=== PATIENT | female | born 1965 | race African-American/Black ===

== ENCOUNTER 2017-03-13 13:03 | Inpatient (IN) ==
[2017-03-13] MEDS ORDERED: INSULIN LISPRO 100 UNIT/ML SUBCUT STA (13:35)
[2017-03-13 13:44] LABS: Basophils % 0.2 % (0.0-0.8); Eosinophils # 0.1 10*3/uL (0.0-0.87); Hematocrit 39.2 VOL% (35.7-47.0); Hemoglobin 13.8 GM/DL (12.0-16.0); Immature Granulocytes % 0.6 %; Immature Granulocytes Absolute 0.03 #; Lymphocytes # 0.8 10*3/uL (1.4-4.0); Lymphocytes % 15.6 % (21.3-54.2); Mean Corpuscular HGB Conc 35.2 GM/DL (32-36); Mean Corpuscular Hemoglobin 31 PG (27-34); Mean Corpuscular Volume 89.1 FL (87-102); Mean Platelet Volume 10.7 FL (9.6-12.0); Monocytes # 0.2 10*3/uL (0.11-0.8); Monocytes % 3.9 % (1.7-12.7); Neutrophils # 3.8 10*3/uL (1.4-7.4); Neutrophils % 77.7 % (38.7-73.9); Platelet Count 201 T/CUMM (130-400); Red Cell Distribution Width 11.4 % (9.3-17.3); White Blood Count 4.9 T/CUMM (4-12)
[2017-03-13] MEDS ORDERED: ONDANSETRON 4 MG/2 ML VIAL IV STA (13:51)
--- NOTE | 2017-03-13 13:52 | Emergency Department Note ---
Karissa Kenyon Gwan, am scribing for, and in the presence of, Syed France MD 13:39 . Edilma Kenyon James D, MD, personally performed the services described in this documentation, ascribed by Brooke Hancock in my presence, and it is both accurate and complete [id number] . Arrival - Arrival Chief Complaint: Non-Specific Stated Complaint: elev blood sugar (586) ED Nursing Triage Note: Elevated blood glucose x 2 days - accu check at time of triage > 500 Mode of Arrival: Ambulatory Limitations: No Limitations Source: Patient, Old Records Reviewed, RN Notes Reviewed Time Seen by Provider: 03/13/17 13:29 - History of Present Illness HPI Narrative: Patient is a 52 y/o female who presents to the ED for further evaluation of elevated blood glucose with an onset 2 days. Pt has a PMHx of NIDDM, IDDM and HTN. Her associated sxs have been urine frequency and being constant thirsty. Patient confirmed that she was dx with DM last year and that she has been compliant with her prescribed medications and diet. She denies any V/D. At time of triage, pt's accu check was >500. During exam pt stated that she had an onset of abd pain today. No other problems/complaints reported in ED. Onset (ago): day(s) Consistency: constant Severity: moderate Date of Last Menstrual Period: oliva Allergies/Adverse Reactions: Allergies Allergy/AdvReac Type Severity Reaction Status Date / Time No Known Allergies Allergy Verified 10/31/16 15:20 Home Medications: Home Medications Medication Instructions Recorded Confirmed Type [place]-3 Fatty Acids [Fish Oil 1,000 mg PO DAILY 12/06/15 03/13/17 History Concentrate] Aspirin EC Tab 325 mg PO DAILY #30 tablet 12/11/15 03/13/17 Rx Magnesium Oxide 400 mg PO BID #60 tablet 12/11/15 03/13/17 Rx Metoclopramide Tab [Reglan Tab] 5 mg PO TIDAC #90 tablet 12/11/15 03/13/17 Rx Sotalol [Betapace] 80 mg PO BID #60 tablet 12/11/15 03/13/17 Rx glyBURIDE [Diabeta] 10 mg PO BID W/MEALS #60 tablet 12/11/15 03/13/17 Rx Diltiazem Tab [Cardizem Tab] 60 mg PO BID 10/31/16 03/13/17 History cloNIDine TAB [Catapres Tab] 0.2 mg PO BID 10/31/16 03/13/17 History Metformin HCl 500 mg PO TID W/MEALS 03/13/17 03/13/17 History Review of System - Review of System 12 point system: reviewed and no additional remarkable complaints except as stated - Review of System Constitutional: Present: as per HPI, other (elevated blood sugar). Absent: chills, fever Eyes: Absent: discharge, pain Head/Ears/Nose/Throat: Absent: earache Respiratory: Absent: cough Cardiovascular: Absent: chest pain, palpitations Gastrointestinal: Present: as per HPI, abdominal pain, nausea, vomiting, diarrhea Genitourinary female: Absent: abnormal menses, dysuria Musculoskeletal: Absent: arm pain, back pain, lower back pain, leg pain, neck pain Skin: Absent: rash, lesions Neurological: Absent: headache, weakness Medical,Surgical,& Family Hx - Medical History Cardio: History of: Hypertension Endocrine: History of: Diabetes Mellitus (IDDM), Diabetes Mellitus (NIDDM) - Surgical History Cardiac Surgeries: Patient Denies: Cardiac Catheterization Reproductive Surgeries: Surgical HX of;: Tubal Ligation - Family History Family History: Reports;: Family Diabetes (mother and father) - Social History Smoking Status: Current every day smoker Frequency of Alcohol Use: None Type of Drug Use: None Exam Physical Examination: GENERAL: This is a well-nourished, well-developed black female in no apparent distress. VITAL SIGNS: HEENT: Head is normocephalic and atraumatic. Pupils are equally round and reactive to light. Extraocular movement are intact. Oropharynx is benign with moist mucous membranes. NECK: Neck is soft and supple without tenderness. There are no masses. There is no lymphadenopathy. LUNGS: Lungs are clear to auscultation bilaterally. Chest rises symmetrically. There is no chest wall tenderness. CV: Heart is regular rate and rhythm without murmurs, rubs, or gallops. ABDOMEN: Abdomen is soft, non-tender to palpation. There are no abnormal masses palpated. There is no organomegaly. Bowel sounds are present and active. SKIN: Skin is warm and dry. No rash. EXTREMITIES: Patient has full range of motion without tenderness. There is no pedal edema. NEUROLOGIC: Awake, alert, and oriented x4. Cranial nerves II through XII are grossly intact. There are no motorsensory deficits. PSYCHIATRIC: Normal affect. Normal mood. Vital Signs: Vital Signs Temperature 98.1 F 03/13/17 13:12 Pulse Rate 83 03/13/17 13:12 Respiratory Rate 20 03/13/17 13:12 Blood Pressure 171/94 03/13/17 13:12 O2 Sat by Pulse Oximetry 97 03/13/17 13:12 Course Course Narrative: Patient was given a liter of IV fluids and 10 units of regular insulin IV. - Consultations Consultation #1: Discussed with hospitalist. Patient will be admitted to their service. Time: 14:29 Results - Labs CBC & BMP: 03/13/17 13:37 03/13/17 13:37 Lab Results: I have reviewed the patients labs Labs: Laboratory Tests 03/13/17 13:37 WBC 4.9 RBC 4.40 Hgb 13.8 Hct 39.2 Plt Count 201 Neut % (Auto) 77.7 H Lymph % (Auto) 15.6 L Lymph # (Auto) 0.8 L Laboratory Tests 03/13/17 13:37 Sodium 133 L Potassium 3.9 Chloride 99 Carbon Dioxide 24 BUN 10 Creatinine 1.00 Glucose 751 H* Disposition Clinical Impression: Diabetes mellitus type 2, uncontrolled Case discussed with: patient Disposition: Still a Patient Condition: Stable
[2017-03-13 14:13] LABS: Calcium 8.5 MG/DL (8.5-10.1); Osmolality,Calculated 300.4 MOS/KG (273-304); Potassium 3.9 MMOL/L (3.5-5.1)
--- NOTE | 2017-03-13 14:20 | XRay Report ---
XR chest 1V Indication: Hyperglycemia. Nausea. Chest one view: Comparison 12/06/2015. The heart size and mediastinal contour are normal. The lungs and pleural spaces are clear, except for scattered calcified granuloma. Bones are unremarkable. Impression: Negative chest except for prior granulomatous disease. PROCEDURE INTERPRETED AT [facility] DEPARTMENT OF RADIOLOGY Final Report Signed by: Albert David M.D.
--- NOTE | 2017-03-13 14:21 | XRay Report ---
XR abdomen complete w decub Indication: Nausea. Abdomen 3 views: No small bowel dilatation. Some stool projects over the colon. No evidence of free air. No abnormal calcifications or masses. There are some phleboliths in the pelvis. Impression: No acute pathology identified. PROCEDURE INTERPRETED AT [facility] DEPARTMENT OF RADIOLOGY Final Report Signed by: Albert David M.D.
[2017-03-13] MEDS ORDERED: INSULIN REGULAR 100 UNIT/ML IV STA (14:27)
[2017-03-13] MEDS ORDERED: ONDANSETRON 4 MG/2 ML VIAL ONE (14:28)
[2017-03-13] MEDS ORDERED: SODIUM CHLORIDE 0.9% 1,000 ML IV STA (14:28)
[2017-03-13] MEDS ORDERED: INSULIN REGULAR 100 UNIT/ML ONE (14:30)
[2017-03-13 15:40] LABS: Apearance,Urine CLEAR (Clear); Bilirubin,Urine Negative (Negative); Blood, Urine Negative (Negative); Glucose,Urine (UA) >=500 mg/dL (Negative); Ketones,Urine 20 mg/dL (Negative); Mucus,Urine Occasional /LPF (Occasional); Nitrite,Urine Negative (Negative); Protein,Urine Negative; RBC,Urine <1 /HPF (0-4); Squamous Epithelial Cell,Urine Occasional /HPF (0-10); Urine Color Straw (Yellow); Urine Specific Gravity 1.031 (1.001-1.035); Urine Urobilinogen < 2.0 EU/DL (0.2-1.0); WBC,Urine 3 /HPF (0-6)
--- NOTE | 2017-03-13 17:18 | Hospitalist History & Physical ---
Assessment and Plan (1) Diabetes mellitus type 2, uncontrolled Status: Acute Current Visit: Yes (2) Essential hypertension Status: Chronic Assessment and plan: Our plan for this patient will be admission to [facility] floor. We will consult diabetic education check an A1c. We will try sliding scale for now. Patient maintains that her sugar was maintained on orals and would be in the 120s. She does quit taking her medications because she did not like the way they made her feel. I stressed the importance of being compliant with her diabetic medications and that it ineffective she could maintain a 120 on the oral medications there is a possibility if she lost weight and diet and exercise that she could be diet-controlled diabetes. Patient will need to be reevaluated in the morning with regards to how she is responding to the fluids and sliding scale and switch her over to p.o. medications. In addition we will continue her other medications for her hypertension. If she has not been compliant with her diabetic medications most likely she has not been compliant with her blood pressure medications. Current Visit: No History of Present Illness Chief complaint: Elevated sugar History of present illness: Ms. Booth is a 52 year old female with past medical history significant for diabetes and hypertension who comes in the ER today complaining of elevated blood glucose. Patient reports that it has been elevated for the past 2 days. She is not on insulin and she says takes metformin. She quit taking her metformin approximately a week ago or longer because she did not like the way it made her feel. She goes to the [facility] clinic. She does not have any nausea or vomiting. Her Accu-Chek was greater than 500 and was greater than 700 on chemistry. I was consulted to admit her. She received 10 units of IV insulin along with 1 L of fluid and her glucose was 388. I was consulted to admit her through the emergency room. Home Medications Medication Instructions Recorded Confirmed Type [place]-3 Fatty Acids [Fish Oil 1,000 mg PO DAILY 12/06/15 03/13/17 History Concentrate] Aspirin EC Tab 325 mg PO DAILY #30 tablet 12/11/15 03/13/17 Rx Magnesium Oxide 400 mg PO BID #60 tablet 12/11/15 03/13/17 Rx Metoclopramide Tab [Reglan Tab] 5 mg PO TIDAC #90 tablet 12/11/15 03/13/17 Rx Sotalol [Betapace] 80 mg PO BID #60 tablet 12/11/15 03/13/17 Rx glyBURIDE [Diabeta] 10 mg PO BID W/MEALS #60 tablet 12/11/15 03/13/17 Rx Diltiazem Tab [Cardizem Tab] 60 mg PO BID 10/31/16 03/13/17 History cloNIDine TAB [Catapres Tab] 0.2 mg PO BID 10/31/16 03/13/17 History Metformin HCl 500 mg PO TID W/MEALS 03/13/17 03/13/17 History Allergies Allergy/AdvReac Type Severity Reaction Status Date / Time No Known Allergies Allergy Verified 10/31/16 15:20 Medical,Surgical,& Family Hx - Medical History Cardio: History of: Hypertension Endocrine: History of: Diabetes Mellitus (IDDM), Diabetes Mellitus (NIDDM) - Surgical History Cardiac Surgeries: Patient Denies: Cardiac Catheterization Reproductive Surgeries: Surgical HX of;: Tubal Ligation - Family History Family History: Reports;: Family Diabetes (mother and father) - Social History Smoking Status: Current every day smoker Frequency of Alcohol Use: None Type of Drug Use: None 12 point system: reviewed and no additional remarkable complaints except as stated Exam - Constitutional Vitals: Period Temp Pulse Resp BP Sys/Velarde Pulse Ox Last 24 Hr 98.1 F 83 20 171/94 General appearance: over weight - Head Head exam: Present: normal inspection - Eye Eye exam: Present: EOMI Pupils: Present: NICHOL - ENT ENT exam: Present: normal exam - Neck Neck exam: Present: normal inspection - Respiratory Respiratory exam: Present: clear to auscultation bilaterally - Cardiovascular Cardiovascular exam: Present: regular rate and rhythm - GI/Abdominal GI/Abdominal exam: Present: normal bowel sounds - Extremities Exam Extremities exam: Present: normal inspection - Back Exam Back exam: Present: normal inspection - Neurological Exam Neurological exam: Present: alert, oriented X3 - Psychiatric Psychiatric exam: Present: normal affect, normal mood Results - Labs CBC & BMP: 03/13/17 13:37 03/13/17 13:37
[2017-03-13] MEDS ORDERED: ACETAMINOPHEN 325 MG TABLET PO PRN (17:22)
[2017-03-13] MEDS ORDERED: DEXTROSE 50% 25 GM/50 ML VIAL IV PRN ×2 (17:22)
[2017-03-13] MEDS ORDERED: GLUCAGON 1 MG VIAL IM PRN ×2 (17:22)
[2017-03-13 18:21] LABS: Risk Ratio 2.72; VLDL CHOLESTEROL 25.8 MG/DL
[2017-03-13] MEDS: SODIUM CHLORIDE 0.9% 1,000 ML IV SCH (18:43)
[2017-03-13] MEDS: ENOXAPARIN 40 MG/0.4 ML SYRINGE SUBCUT SCH (18:43)
[2017-03-13] MEDS: INSULIN REGULAR 100 UNIT/ML SUBCUT SCH (21:17)
[2017-03-13] MEDS: MAGNESIUM OXIDE 400 MG TABLET PO SCH (21:19)
[2017-03-13] MEDS: DILTIAZEM 60 MG TABLET PO SCH (21:20)
[2017-03-13] MEDS: SOTALOL 80 MG TABLET PO SCH (21:21)
[2017-03-14 04:59] LABS: Basophils % 0.2 % (0.0-0.8); Eosinophils # 0.2 10*3/uL (0.0-0.87); Eosinophils % 3.1 % (0.00-10.9); Hematocrit 36.4 VOL% (35.7-47.0); Hemoglobin 12.3 GM/DL (12.0-16.0); Immature Granulocytes % 0.4 %; Immature Granulocytes Absolute 0.02 #; Lymphocytes # 2.3 10*3/uL (1.4-4.0); Lymphocytes % 41.2 % (21.3-54.2); Mean Corpuscular HGB Conc 33.8 GM/DL (32-36); Mean Corpuscular Hemoglobin 30 PG (27-34); Mean Corpuscular Volume 89.7 FL (87-102); Mean Platelet Volume 10.8 FL (9.6-12.0); Monocytes # 0.2 10*3/uL (0.11-0.8); Monocytes % 4.2 % (1.7-12.7); Neutrophils # 2.8 10*3/uL (1.4-7.4); Neutrophils % 50.9 % (38.7-73.9); Platelet Count 226 T/CUMM (130-400); Red Blood Count 4.06 MC/CUMM (3.8-5.5); Red Cell Distribution Width 11.5 % (9.3-17.3); White Blood Count 5.5 T/CUMM (4-12)
[2017-03-14] MEDS: SODIUM CHLORIDE 0.9% 1,000 ML IV SCH ×3 (05:28→17:55)
[2017-03-14 05:34] LABS: Calcium 8.1 MG/DL (8.5-10.1); Osmolality,Calculated 282.4 MOS/KG (273-304); Potassium 3.3 MMOL/L (3.5-5.1)
[2017-03-14] MEDS ORDERED: FLUCONAZOLE 150 MG TABLET PO ONE (09:00)
[2017-03-14] MEDS: MAGNESIUM OXIDE 400 MG TABLET PO SCH ×2 (09:02→21:07)
[2017-03-14] MEDS: glyBURIDE 5 MG TABLET PO SCH ×2 (09:02→17:47)
[2017-03-14] MEDS: METOCLOPRAMIDE 5 MG TABLET PO SCH ×3 (09:03→17:48)
[2017-03-14] MEDS: ASPIRIN EC 325 MG TABLET PO SCH (09:03)
[2017-03-14] MEDS: metFORMIN 500 MG TABLET PO SCH ×3 (09:03→17:47)
[2017-03-14] MEDS: PANTOPRAZOLE 40 MG TABLET PO SCH (09:03)
[2017-03-14] MEDS: DILTIAZEM 60 MG TABLET PO SCH ×2 (09:03→21:07)
[2017-03-14] MEDS: OMEGA 3 ACID ETHYL ESTERS 1 GM CAPSULE PO SCH (09:03)
[2017-03-14] MEDS: SOTALOL 80 MG TABLET PO SCH ×2 (09:04→21:07)
[2017-03-14] MEDS: INSULIN REGULAR 100 UNIT/ML SUBCUT SCH ×4 (09:07→21:08)
--- NOTE | 2017-03-14 09:07 | Hospitalist Progress Note ---
Hospitalist: Subjective Interval history: Patient complains of vaginal itching. She denies any chest pain shortness of breath, nausea, vomiting. No abdominal pain. She is concerned about taking her former medications for diabetes control and she said the Metformin caused her to have diarrhea and hair loss at the 850 mg dose. Exam - Constitutional Vitals: Period Temp Pulse Resp BP Sys/Velarde Pulse Ox Last 24 Hr 96.9 F-98.1 F 52-83 18-20 130-186/76-94 91-98 Exam: Awake alert and oriented 4 lying in the hospital bed in no acute distress. Obese. HEENT exam reveals pupils are equal and reactive to light. extraocular muscles are intact. sclerae clear. conjunctiva pink. nares are patent. no discharge or epistaxis noted. oropharynx is clear with no oral lesions or thrush. Neck exam is supple with no lymphadenopathy or thyromegaly appreciated. No JVD. Cardiovascular exam reveals regular rate and rhythm, normal S1-S2 without obvious murmurs rubs or gallops. Lungs are clear to auscultation bilaterally with good aeration nonlabored breathing noted. Abdomen is soft nontender nondistended positive bowel sounds no organomegaly or masses appreciated though difficult to assess given her body habitus Extremity exam she is warm and well-perfused no clubbing cyanosis or edema. Neuro exam was nonfocal. Results - Labs CBC & BMP: 03/14/17 02:44 03/14/17 02:44 - Impressions (1) Diabetes mellitus type 2, uncontrolled with HgbA1c 12.3 Status: Acute Current Visit: Yes - Cont Glyburide and Metformin. DM education to see. Add Levemir. Cont accuchecks ac,hs and I.S.S. (2) Essential hypertension Status: Chronic Assessment and plan: - Cont home meds (3) Dyslipidemia - start statin (4) Candidal vaginitis - Fluconazole (5) Dysrhythmia - cont home meds DVT prophylaxis- Lovenox
[2017-03-14] MEDS: ENOXAPARIN 40 MG/0.4 ML SYRINGE SUBCUT SCH (17:48)
[2017-03-14] MEDS ORDERED: INSULIN GLARGINE 100 UNIT/ML SUBCUT SCH (21:00)
[2017-03-14] MEDS ORDERED: PRAVASTATIN 20 MG TABLET PO SCH (21:00)
[2017-03-15] MEDS: SODIUM CHLORIDE 0.9% 1,000 ML IV SCH (08:09)
[2017-03-15] MEDS: ASPIRIN EC 325 MG TABLET PO SCH (08:50)
[2017-03-15] MEDS: INSULIN REGULAR 100 UNIT/ML SUBCUT SCH ×2 (08:50→11:52)
[2017-03-15] MEDS: OMEGA 3 ACID ETHYL ESTERS 1 GM CAPSULE PO SCH (08:50)
[2017-03-15] MEDS: DILTIAZEM 60 MG TABLET PO SCH (08:50)
[2017-03-15] MEDS: SOTALOL 80 MG TABLET PO SCH (08:51)
[2017-03-15] MEDS: METOCLOPRAMIDE 5 MG TABLET PO SCH ×2 (08:51→11:51)
[2017-03-15] MEDS: metFORMIN 500 MG TABLET PO SCH ×2 (08:51→11:51)
[2017-03-15] MEDS: glyBURIDE 5 MG TABLET PO SCH (08:51)
[2017-03-15] MEDS: MAGNESIUM OXIDE 400 MG TABLET PO SCH (08:52)
[2017-03-15] MEDS: PANTOPRAZOLE 40 MG TABLET PO SCH (08:52)
--- NOTE | 2017-03-15 09:38 | Hospitalist Progress Note ---
Hospitalist: Subjective Interval history: No pain. No fever. No SOB. No significant overnight events noted/ reported. BS better this am. Exam - Constitutional Vitals: Period Temp Pulse Resp BP Sys/Velarde Pulse Ox Last 24 Hr 97.0 F-97.6 F 50-64 16-18 124-157/57-100 96-100 Exam: Awake alert and oriented 4 lying in the hospital bed in no acute distress. Obese. HEENT exam reveals pupils are equal and reactive to light. extraocular muscles are intact. sclerae clear. conjunctiva pink. nares are patent. no discharge or epistaxis noted. oropharynx is clear with no oral lesions or thrush. Neck exam is supple with no lymphadenopathy or thyromegaly appreciated. No JVD. Cardiovascular exam reveals regular rate and rhythm, normal S1-S2 without obvious murmurs rubs or gallops. Lungs are clear to auscultation bilaterally with good aeration nonlabored breathing noted. Abdomen is soft nontender nondistended positive bowel sounds no organomegaly or masses appreciated though difficult to assess given her body habitus Extremity exam she is warm and well-perfused no clubbing cyanosis or edema. Neuro exam was nonfocal. Results - Labs CBC & BMP: 03/14/17 02:44 03/14/17 02:44 - Impressions (1) Diabetes mellitus type 2, uncontrolled with HgbA1c 12.3 Status: Acute Current Visit: Yes - Cont Glyburide and Metformin. DM education to see. Change Levemir to Novolin 70/30 due to financial issues. Cont accuchecks ac,hs and I.S.S. (2) Essential hypertension Status: Chronic Assessment and plan: - Cont home meds (3) Dyslipidemia - start statin (4) Candidal vaginitis - Fluconazole (5) Dysrhythmia - cont home meds DVT prophylaxis- Lovenox ok to dc home. See orders.
--- NOTE | 2017-03-15 10:48 | Discharge Summary ---
<Delfin Cox - Last Filed: 03/15/17 10:35> Hospital Course - Hospital Course Hospital Course: Ms. Booth is a 52 yr old female with a history of afib/aflutter, htn, UTI, gastroparesis, and dm that presented to the ED on 03/13 for evaluation of elevated blood sugars. Pt. stated that the blood sugars had been elevated for the last 2 days. She experienced associated symptoms of polyuria and polydyspia. Pt reported being diagnosed with DM last year and compliance with medications. In the ED her blood sugar was noted to be greater than 500s. Pt. was given IV insulin and fluids. The patient was admitted for further evaluation and treatment. A1c was noted to be 12.3. Diabetes educators were consulted to see patient. She was educated about importance of compliance of medications. Written and verbal information were given. She was placed on accuchecks and sliding scale insulin. Pt. was started on Levemir. Pt's blood sugars this am are 196. Pt. stable this am and will be discharged. Specialty Discharge - Follow Up or Referrals Follow up with: md, pcp [Other] - 2 Weeks Discharge Plan - Discharge Data Disposition: Disch To Home/Self Care - Discharge Medications New Insulin Aspart Prot/Asp 70/30 [NovoLOG Mix 70/30] 10 unit SUBCUT BIDAC #10 ml Pravastatin [Pravachol] 20 mg PO BEDTIME #30 tablet metFORMIN [Glucophage] 500 mg PO TID W/MEALS #90 tablet Continue [place]-3 Fatty Acids [Fish Oil Concentrate] 1,000 mg PO DAILY Aspirin EC Tab 325 mg PO DAILY #30 tablet Sotalol [Betapace] 80 mg PO BID #60 tablet glyBURIDE [Diabeta] 10 mg PO BID W/MEALS #60 tablet Magnesium Oxide 400 mg PO BID #60 tablet Metoclopramide Tab [Reglan Tab] 5 mg PO TIDAC #90 tablet Diltiazem Tab [Cardizem Tab] 60 mg PO BID cloNIDine TAB [Catapres Tab] 0.2 mg PO BID Discontinued Metformin HCl 850 mg PO TID W/MEALS - Follow Up or Referral - Forms/Instructions Exam - Constitutional Vitals: Period Temp Pulse Resp BP Sys/Velarde Pulse Ox Last 24 Hr 97.0 F-97.6 F 50-64 16-18 124-157/57-100 94-100 Discharge Results Labs on day of discharge: Labs from last 24 hours 03/15/17 03/15/17 03/14/17 11:42 08:20 20:02 POC Glucose 272 H 196 H 305 H 03/14/17 16:39 POC Glucose 267 H DS: Provider Date of admission: 03/13/17 14:49 Primary care physician: . No PCP Attending physician on admission: Daniel Garcia MD Consults: 03/13/17 17:54 Consult to [facility], Educator [CONS] Routine Reason for Field Marketing Coordinator: Diabetes Education 03/13/17 18:01 Consult to Dietitian [CONS] Routine Reason for Dietitian: Diet Instruction Discharging clinician: Delfin Cox NP <Aleta Walker - Last Filed: 03/15/17 12:57> Hospital Course - Hospital Course Hospital Course: Pt complained of vaginal itch and felt she had a yeast infection. She was given Diflucan 150mg po x 1 with improvement with symptoms. Due to financial constraints Levemir was changed in Novolog 70/30 10U BID. Once BS better controlled, she was discharged to home. - Time spent with patient Time with patient DS: Greater than 30 minutes (35 minutes) Discharge Plan - Discharge Data Condition at Discharge: Stable Discharge Diet: diabetic diet Activity: resume usual activities as tolerated Contact your physician if you experience:: fever over 101, Difficulty voiding, Redness or swelling, Nausea/Vomiting, Shortness of breath, Bleeding, pain uncontrolled by pain medications Exam - Constitutional Exam: see progress note from today for physical exam
[2017-03-15 12:17] VITALS: BP 140/74
[2017-03-15] MEDS ORDERED: INSULIN ASPART PROTAMINE/ASPART 70/30 100 UNIT/ML SUBCUT SCH (16:30)
== END 2017-03-15 13:41 | disposition home or self-care (01) | DRG 639 ==
LOC: N.ED 13:03 → N.EDINP 14:49 → SUATTDRO 14:49 → N.CC 15:11 → N.4E 16:40
PROVIDERS: ADMIT Family Medicine; ATTEND Pediatrics

== ENCOUNTER 2017-09-24 18:44 | Observation (INO) ==
[2017-09-24] MEDS ORDERED: SODIUM CHLORIDE 0.9% 500 ML IV STA (19:40)
[2017-09-24] MEDS ORDERED: ACETAMINOPHEN 500 MG TABLET PO STA (19:40)
[2017-09-24] MEDS ORDERED: INSULIN REGULAR 100 UNIT/ML SUBCUT STA (19:42)
[2017-09-24 19:52] LABS: Basophils % 0.2 % (0.0-0.8); Eosinophils % 0.3 % (0.00-10.9); Hematocrit 40.8 VOL% (35.7-47.0); Hemoglobin 14.2 GM/DL (12.0-16.0); Immature Granulocytes % 0.5 %; Immature Granulocytes Absolute 0.03 #; Lymphocytes # 0.6 10*3/uL (1.4-4.0); Lymphocytes % 10.2 % (21.3-54.2); Mean Corpuscular HGB Conc 34.8 GM/DL (32-36); Mean Corpuscular Hemoglobin 31 PG (27-34); Mean Corpuscular Volume 89.3 FL (87-102); Mean Platelet Volume 10.5 FL (9.6-12.0); Monocytes # 0.4 10*3/uL (0.11-0.8); Neutrophils # 4.9 10*3/uL (1.4-7.4); Neutrophils % 82.8 % (38.7-73.9); Platelet Count 166 T/CUMM (130-400); Red Blood Count 4.57 MC/CUMM (3.8-5.5); Red Cell Distribution Width 10.7 % (9.3-17.3)
[2017-09-24 20:06] LABS: Albumin 3.3 G/DL (3.4-5.0); Bilirubin,Total 1.5 MG/DL (0.2-1.0); Calcium 8.6 MG/DL (8.5-10.1); Osmolality,Calculated 282.1 MOS/KG (273-304); Potassium 4.2 MMOL/L (3.5-5.1); Total Protein 6.7 G/DL (6.4-8.3)
[2017-09-24] MEDS ORDERED: ACETAMINOPHEN 500 MG TABLET ONE (20:15)
[2017-09-24] MEDS ORDERED: INSULIN REGULAR 100 UNIT/ML ONE (20:17)
[2017-09-24 20:42] LABS: Lactic Acid 1.8 MMOL/L (0.4-2.0)
[2017-09-24 21:10] LABS: Apearance,Urine Slightly Hazy (Clear); Bacteria,Urine Moderate /HPF (Few); Bilirubin,Urine Negative (Negative); Blood, Urine Small mg/dL (Negative); Glucose,Urine (UA) >=500 mg/dL (Negative); Ketones,Urine 80 mg/dL (Negative); Mucus,Urine Occasional /LPF (Occasional); Nitrite,Urine Negative (Negative); Protein,Urine Negative; RBC,Urine 9 /HPF (0-4); Squamous Epithelial Cell,Urine Occasional /HPF (0-10); Urine Color Yellow (Yellow); Urine Specific Gravity 1.025 (1.001-1.035); Urine Urobilinogen < 2.0 EU/DL (0.2-1.0); WBC,Urine 102 /HPF (0-6)
[2017-09-24] MEDS ORDERED: cefTRIAXone 1,000 MG in SODIUM CHLORIDE 0.9% 100 ML IV STA (21:33)
[2017-09-24] MEDS ORDERED: cefTRIAXone 1,000 MG VIAL ONE (21:49)
[2017-09-24] MEDS ORDERED: ONDANSETRON 4 MG/2 ML VIAL IV PRN (22:14)
[2017-09-24] MEDS ORDERED: DEXTROSE 50% 25 GM/50 ML VIAL IV PRN ×2 (22:14)
[2017-09-24] MEDS ORDERED: GLUCAGON 1 MG VIAL IM PRN ×2 (22:14)
[2017-09-24] MEDS ORDERED: DEXTROSE 5% NACL 0.9% 1,000 ML IV SCH (22:30)
[2017-09-25] MEDS: SODIUM CHLORIDE 0.9% 1,000 ML IV SCH ×3 (01:10→17:14)
[2017-09-25] MEDS: ACETAMINOPHEN 325 MG TABLET PO PRN ×3 (02:22→22:38)
[2017-09-25 06:00] LABS: Basophils % 0.2 % (0.0-0.8); Eosinophils # 0.1 10*3/uL (0.0-0.87); Eosinophils % 1.1 % (0.00-10.9); Hematocrit 34.3 VOL% (35.7-47.0); Hemoglobin 12.1 GM/DL (12.0-16.0); Immature Granulocytes % 0.4 %; Immature Granulocytes Absolute 0.02 #; Lymphocytes # 0.8 10*3/uL (1.4-4.0); Lymphocytes % 18.8 % (21.3-54.2); Mean Corpuscular HGB Conc 35.3 GM/DL (32-36); Mean Corpuscular Hemoglobin 31 PG (27-34); Mean Corpuscular Volume 88.9 FL (87-102); Monocytes # 0.4 10*3/uL (0.11-0.8); Monocytes % 8.9 % (1.7-12.7); Neutrophils # 3.2 10*3/uL (1.4-7.4); Neutrophils % 70.6 % (38.7-73.9); Platelet Count 142 T/CUMM (130-400); Red Blood Count 3.86 MC/CUMM (3.8-5.5); Red Cell Distribution Width 10.8 % (9.3-17.3); White Blood Count 4.5 T/CUMM (4-12)
[2017-09-25 06:26] LABS: Hypochromasia 1+; Microcytosis Slight; Ovalocytes Slight; Platelet Estimate Normal
[2017-09-25 06:44] LABS: Albumin 2.5 G/DL (3.4-5.0); Bilirubin,Total 1.5 MG/DL (0.2-1.0); Calcium 7.9 MG/DL (8.5-10.1); Osmolality,Calculated 281.2 MOS/KG (273-304); Potassium 3.2 MMOL/L (3.5-5.1); Risk Ratio 2.64; Total Protein 5.5 G/DL (6.4-8.3); VLDL CHOLESTEROL 18.8 MG/DL
[2017-09-25] MEDS: METOCLOPRAMIDE 5 MG TABLET PO SCH ×3 (07:31→17:13)
[2017-09-25] MEDS: ASPIRIN EC 325 MG TABLET PO SCH (08:36)
[2017-09-25] MEDS: glyBURIDE 5 MG TABLET PO SCH ×2 (08:36→17:13)
[2017-09-25] MEDS: MAGNESIUM OXIDE 400 MG TABLET PO SCH ×2 (08:36→22:10)
[2017-09-25] MEDS: PANTOPRAZOLE 40 MG TABLET PO SCH (08:36)
[2017-09-25] MEDS: SOTALOL 80 MG TABLET PO SCH ×2 (08:37→22:10)
[2017-09-25] MEDS: INSULIN LISPRO 100 UNIT/ML SUBCUT SCH ×4 (08:37→22:07)
[2017-09-25] MEDS: DILTIAZEM 60 MG TABLET PO SCH ×2 (08:37→22:09)
[2017-09-25] MEDS: ENOXAPARIN 40 MG/0.4 ML SYRINGE SUBCUT SCH (08:37)
[2017-09-25] MEDS: OMEGA 3 ACID ETHYL ESTERS 1 GM CAPSULE PO SCH (08:45)
[2017-09-25] MEDS: LISINOPRIL 10 MG TABLET PO SCH (12:04)
[2017-09-25] MEDS ORDERED: cefTRIAXone 1,000 MG in SYRINGE 1 EACH IV SCH (21:00)
[2017-09-25] MEDS ORDERED: INSULIN GLARGINE 100 UNIT/ML SUBCUT SCH (21:00)
[2017-09-25] MEDS: PRAVASTATIN 20 MG TABLET PO SCH (22:10)
[2017-09-26 06:39] LABS: Basophils % 0.2 % (0.0-0.8); Eosinophils # 0.1 10*3/uL (0.0-0.87); Eosinophils % 1.7 % (0.00-10.9); Hematocrit 31.7 VOL% (35.7-47.0); Hemoglobin 10.9 GM/DL (12.0-16.0); Immature Granulocytes % 0.5 %; Immature Granulocytes Absolute 0.02 #; Mean Corpuscular HGB Conc 34.4 GM/DL (32-36); Mean Corpuscular Hemoglobin 31 PG (27-34); Mean Corpuscular Volume 90.3 FL (87-102); Mean Platelet Volume 10.1 FL (9.6-12.0); Monocytes # 0.5 10*3/uL (0.11-0.8); Monocytes % 12.4 % (1.7-12.7); Neutrophils # 2.6 10*3/uL (1.4-7.4); Neutrophils % 61.2 % (38.7-73.9); Platelet Count 136 T/CUMM (130-400); Red Blood Count 3.51 MC/CUMM (3.8-5.5); Red Cell Distribution Width 10.9 % (9.3-17.3); White Blood Count 4.2 T/CUMM (4-12)
[2017-09-26 07:12] LABS: Calcium 7.6 MG/DL (8.5-10.1); Osmolality,Calculated 282.7 MOS/KG (273-304); Potassium 3.2 MMOL/L (3.5-5.1)
[2017-09-26] MEDS: ENOXAPARIN 40 MG/0.4 ML SYRINGE SUBCUT SCH (10:22)
[2017-09-26] MEDS: OMEGA 3 ACID ETHYL ESTERS 1 GM CAPSULE PO SCH (10:22)
[2017-09-26] MEDS: SODIUM CHLORIDE 0.9% 1,000 ML IV SCH ×2 (10:22→12:38)
[2017-09-26] MEDS: ASPIRIN EC 325 MG TABLET PO SCH (10:22)
[2017-09-26] MEDS: MAGNESIUM OXIDE 400 MG TABLET PO SCH ×2 (10:22→20:37)
[2017-09-26] MEDS: METOCLOPRAMIDE 5 MG TABLET PO SCH ×3 (10:22→18:16)
[2017-09-26] MEDS: glyBURIDE 5 MG TABLET PO SCH ×2 (10:23→18:16)
[2017-09-26] MEDS: SOTALOL 80 MG TABLET PO SCH ×2 (10:23→20:36)
[2017-09-26] MEDS: DILTIAZEM 60 MG TABLET PO SCH ×2 (10:23→20:36)
[2017-09-26] MEDS: PANTOPRAZOLE 40 MG TABLET PO SCH (10:24)
[2017-09-26] MEDS: INSULIN LISPRO 100 UNIT/ML SUBCUT SCH ×4 (10:24→20:37)
[2017-09-26] MEDS: LISINOPRIL 10 MG TABLET PO SCH (10:24)
[2017-09-26] MEDS: PIPERACILLIN/TAZOBACTAM 3,375 MG in SODIUM CHLORIDE 0.9% 100 ML IV SCH ×2 (12:38→20:34)
[2017-09-26] MEDS: PRAVASTATIN 20 MG TABLET PO SCH (20:36)
[2017-09-26] MEDS: INSULIN GLARGINE 100 UNIT/ML SUBCUT SCH (20:38)
[2017-09-27] MEDS: PIPERACILLIN/TAZOBACTAM 3,375 MG in SODIUM CHLORIDE 0.9% 100 ML IV SCH ×3 (04:03→21:36)
[2017-09-27 04:45] LABS: Basophils % 0.3 % (0.0-0.8); Eosinophils # 0.1 10*3/uL (0.0-0.87); Eosinophils % 2.5 % (0.00-10.9); Hematocrit 30.8 VOL% (35.7-47.0); Hemoglobin 10.2 GM/DL (12.0-16.0); Immature Granulocytes % 0.3 %; Immature Granulocytes Absolute 0.01 #; Lymphocytes # 1.3 10*3/uL (1.4-4.0); Lymphocytes % 32.9 % (21.3-54.2); Mean Corpuscular HGB Conc 33.1 GM/DL (32-36); Mean Corpuscular Hemoglobin 31 PG (27-34); Mean Corpuscular Volume 92.8 FL (87-102); Mean Platelet Volume 10.4 FL (9.6-12.0); Monocytes # 0.3 10*3/uL (0.11-0.8); Monocytes % 8.6 % (1.7-12.7); Neutrophils # 2.2 10*3/uL (1.4-7.4); Neutrophils % 55.4 % (38.7-73.9); Platelet Count 162 T/CUMM (130-400); Red Blood Count 3.32 MC/CUMM (3.8-5.5); Red Cell Distribution Width 10.8 % (9.3-17.3)
[2017-09-27 05:07] LABS: Calcium 7.7 MG/DL (8.5-10.1); Osmolality,Calculated 278.4 MOS/KG (273-304)
[2017-09-27] MEDS: INSULIN LISPRO 100 UNIT/ML SUBCUT SCH ×4 (08:55→21:35)
[2017-09-27] MEDS: DILTIAZEM 60 MG TABLET PO SCH ×2 (10:53→21:33)
[2017-09-27] MEDS: METOCLOPRAMIDE 5 MG TABLET PO SCH ×3 (10:54→17:00)
[2017-09-27] MEDS: OMEGA 3 ACID ETHYL ESTERS 1 GM CAPSULE PO SCH (10:54)
[2017-09-27] MEDS: ACETAMINOPHEN 325 MG TABLET PO PRN (10:55)
[2017-09-27] MEDS: LISINOPRIL 10 MG TABLET PO SCH (10:55)
[2017-09-27] MEDS: ASPIRIN EC 325 MG TABLET PO SCH (10:56)
[2017-09-27] MEDS: MAGNESIUM OXIDE 400 MG TABLET PO SCH ×2 (10:56→21:34)
[2017-09-27] MEDS: ENOXAPARIN 40 MG/0.4 ML SYRINGE SUBCUT SCH (10:58)
[2017-09-27] MEDS: SOTALOL 80 MG TABLET PO SCH ×2 (11:03→21:33)
[2017-09-27] MEDS: PANTOPRAZOLE 40 MG TABLET PO SCH (11:03)
[2017-09-27] MEDS: glyBURIDE 5 MG TABLET PO SCH ×2 (11:06→17:01)
[2017-09-27] MEDS ORDERED: POTASSIUM CHLORIDE 20 MEQ TABLET PO ONE (12:30)
[2017-09-27] MEDS ORDERED: SIMETHICONE CHEW 125 MG TABLET PO PRN (12:35)
[2017-09-27] MEDS: POTASSIUM CHLORIDE 10 MEQ TABLET PO SCH ×2 (15:27→21:34)
[2017-09-27] MEDS: PRAVASTATIN 20 MG TABLET PO SCH (21:34)
[2017-09-27] MEDS: INSULIN GLARGINE 100 UNIT/ML SUBCUT SCH (21:35)
[2017-09-28] MEDS: SODIUM CHLORIDE 0.9% 1,000 ML IV SCH (01:17)
[2017-09-28 03:58] LABS: Basophils % 0.4 % (0.0-0.8); Eosinophils # 0.1 10*3/uL (0.0-0.87); Eosinophils % 2.9 % (0.00-10.9); Hematocrit 29.4 VOL% (35.7-47.0); Hemoglobin 10.1 GM/DL (12.0-16.0); Immature Granulocytes Absolute 0.05 #; Lymphocytes # 1.7 10*3/uL (1.4-4.0); Lymphocytes % 34.5 % (21.3-54.2); Mean Corpuscular HGB Conc 34.4 GM/DL (32-36); Mean Corpuscular Hemoglobin 31 PG (27-34); Mean Corpuscular Volume 90.7 FL (87-102); Mean Platelet Volume 10.1 FL (9.6-12.0); Monocytes # 0.4 10*3/uL (0.11-0.8); Monocytes % 7.5 % (1.7-12.7); Neutrophils # 2.6 10*3/uL (1.4-7.4); Neutrophils % 53.7 % (38.7-73.9); Platelet Count 168 T/CUMM (130-400); Red Blood Count 3.24 MC/CUMM (3.8-5.5); Red Cell Distribution Width 10.8 % (9.3-17.3); White Blood Count 4.8 T/CUMM (4-12)
[2017-09-28] MEDS: PIPERACILLIN/TAZOBACTAM 3,375 MG in SODIUM CHLORIDE 0.9% 100 ML IV SCH ×3 (04:10→21:34)
[2017-09-28 04:30] LABS: Magnesium 1.7 MG/DL (1.8-2.4); Osmolality,Calculated 284.1 MOS/KG (273-304); Potassium 3.5 MMOL/L (3.5-5.1)
[2017-09-28 06:25] LABS: Eosinophils 1 % (0-10); Lymphocytes 33 % (20-55); Nucleated Red Blood Cells 1 (0-5); Segmented Neutrophils 54 % (50-85); Total Cells Counted 100
[2017-09-28 06:26] LABS: Hypochromasia 2+; Microcytosis 1+; Platelet Estimate Adequate
[2017-09-28] MEDS: INSULIN LISPRO 100 UNIT/ML SUBCUT SCH ×4 (10:41→21:37)
[2017-09-28] MEDS: ENOXAPARIN 40 MG/0.4 ML SYRINGE SUBCUT SCH (10:42)
[2017-09-28] MEDS: POTASSIUM CHLORIDE 10 MEQ TABLET PO SCH ×2 (10:42→21:36)
[2017-09-28] MEDS: SOTALOL 80 MG TABLET PO SCH ×2 (10:43→21:35)
[2017-09-28] MEDS: MAGNESIUM OXIDE 400 MG TABLET PO SCH ×2 (10:43→21:36)
[2017-09-28] MEDS: OMEGA 3 ACID ETHYL ESTERS 1 GM CAPSULE PO SCH (10:43)
[2017-09-28] MEDS: glyBURIDE 5 MG TABLET PO SCH ×2 (10:43→16:24)
[2017-09-28] MEDS: DILTIAZEM 60 MG TABLET PO SCH ×2 (10:43→21:35)
[2017-09-28] MEDS: PANTOPRAZOLE 40 MG TABLET PO SCH (10:44)
[2017-09-28] MEDS: METOCLOPRAMIDE 5 MG TABLET PO SCH ×3 (10:44→16:24)
[2017-09-28] MEDS: LISINOPRIL 10 MG TABLET PO SCH (10:44)
[2017-09-28] MEDS: ASPIRIN EC 325 MG TABLET PO SCH (10:44)
[2017-09-28] MEDS: metFORMIN 500 MG TABLET PO SCH (16:24)
[2017-09-28] MEDS: PRAVASTATIN 20 MG TABLET PO SCH (21:35)
[2017-09-28] MEDS: INSULIN GLARGINE 100 UNIT/ML SUBCUT SCH (21:37)
[2017-09-29] MEDS: PIPERACILLIN/TAZOBACTAM 3,375 MG in SODIUM CHLORIDE 0.9% 100 ML IV SCH ×2 (03:05→14:24)
[2017-09-29 05:57] LABS: Calcium 7.9 MG/DL (8.5-10.1); Magnesium 1.7 MG/DL (1.8-2.4); Osmolality,Calculated 282.4 MOS/KG (273-304); Potassium 3.7 MMOL/L (3.5-5.1)
[2017-09-29] MEDS: glyBURIDE 5 MG TABLET PO SCH (09:11)
[2017-09-29] MEDS: metFORMIN 500 MG TABLET PO SCH (09:11)
[2017-09-29] MEDS: INSULIN LISPRO 100 UNIT/ML SUBCUT SCH ×2 (09:11→12:10)
[2017-09-29] MEDS: OMEGA 3 ACID ETHYL ESTERS 1 GM CAPSULE PO SCH (09:11)
[2017-09-29] MEDS: MAGNESIUM OXIDE 400 MG TABLET PO SCH (09:12)
[2017-09-29] MEDS: POTASSIUM CHLORIDE 10 MEQ TABLET PO SCH (09:12)
[2017-09-29] MEDS: SOTALOL 80 MG TABLET PO SCH (09:12)
[2017-09-29] MEDS: ASPIRIN EC 325 MG TABLET PO SCH (09:12)
[2017-09-29] MEDS: DILTIAZEM 60 MG TABLET PO SCH (09:12)
[2017-09-29] MEDS: PANTOPRAZOLE 40 MG TABLET PO SCH (09:12)
[2017-09-29] MEDS: LISINOPRIL 10 MG TABLET PO SCH (09:12)
[2017-09-29] MEDS: METOCLOPRAMIDE 5 MG TABLET PO SCH ×2 (09:12→12:10)
[2017-09-29] MEDS: ENOXAPARIN 40 MG/0.4 ML SYRINGE SUBCUT SCH (11:07)
[2017-09-29 12:09] VITALS: BP 133/80
== END 2017-09-29 14:55 | disposition home or self-care (01) ==
LOC: N.ED 18:44 → N.EDINP 18:44 → SUATTDRO 22:14 → N.2E 23:00
PROVIDERS: ADMIT Internal Medicine; ATTEND Internal Medicine